=== PATIENT | male | born 1965 | race Caucasian/White ===

== ENCOUNTER → 2018-08-14 | Outpatient (CLI) | payer OTHER ==
--- NOTE | 2018-08-14 12:55 | Diagnostic Imaging Report ---
PROCEDURE:L-SPINE COMPLETE COMPARISON:None. INDICATIONS:RIGHT SIDE BACK PAIN FINDINGS: The vertebral bodies are well-aligned without evidence of spondylolisthesis. There are no fractures, lytic or blastic lesions. Mild degenerative disc and facet degenerative changes. The sacroiliac joints are unremarkable. CONCLUSION: No acute osseous abnormality. Mild degenerative disc and facet degenerative changes of the lumbar spine. Dictated by: WILLIAM DÍAZ M.D. on 08/14/2018 at 13:03 Electronically approved by: WILLIAM DÍAZ M.D. on 08/14/2018 at 13:03
--- NOTE | 2018-08-14 12:57 | Diagnostic Imaging Report ---
PROCEDURE:SACRUM X-RAY- AP AND LATERAL INDICATION:Pain COMPARISON:None. FINDINGS: Bowel gas partially obscures visualization of the sacrum. No evidence of fracture or malalignment. CONCLUSION: No acute osseous abnormality. Dictated by: WILLIAM DÍAZ M.D. on 08/14/2018 at 13:04 Electronically approved by: WILLIAM DÍAZ M.D. on 08/14/2018 at 13:04
== END ==
LOC: RAD 09:35
PROVIDERS: ATTEND Internal Medicine
DX: M47.817 Spondylosis without myelopathy or radiculopathy, lumbosacral region (principal)
CPT/HCPCS: 72110; 72220